=== PATIENT | male | born 1980 | race African-American/Black ===

== ENCOUNTER 2018-08-29 21:33 | Emergency (ER) | payer OTHER, SELFPAY ==
[2018-08-29 21:34] VITALS: BP 133/92; PULSE 72; RESP 16; TEMP 37.3; O2SAT 100; BMI 28.0
--- NOTE | 2018-08-29 21:45 | CT_ITS ---
STUDY: CT BRAIN WITHOUT CONTRAST REASON FOR EXAM: Male, 38 years old. Head injury. RADIATION DOSAGE (If Supplied By Facility): CTDIvol = ( 44.99 ) mGy, DLP = ( 745.49 ) mGycm TECHNIQUE: Transaxial CT imaging of the brain was performed without administration of intravenous contrast material. # of Images: 235 Individualized dose optimization techniques were used for this CT. COMPARISON: None. FINDINGS: Normal soft tissue structures. Normal calvarium. Normal size ventricles and extra-axial spaces for the patient's age. Normal white matter tracts of the cerebral hemispheres. Normal basal ganglia and thalami. Normal brainstem. There is mild cerebellar atrophy. There is no intracranial hemorrhage. There are no findings of an acute ischemic infarction. Normal visualized paranasal sinuses. CT/Brain/Head without Contrast IMPRESSION: No acute intracranial process. Cerebellar atrophy. Electronically Signed: Matt Boogie MD at 23:16 EDT Tel , Service support ,
[2018-08-29 21:51] VITALS: BP 143/91; PULSE 76; RESP 16; O2SAT 98
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
[2018-08-29 23:34] VITALS: BP 145/91; PULSE 78; RESP 17; O2SAT 98
== END 2018-08-29 23:35 | disposition home or self-care (01) ==
PROVIDERS: Emergency Provider Emergency Medicine
DX: S06.0X0A Concussion without loss of consciousness, initial encounter (principal); Y04.2XXA Assault by strike against or bumped into by another person, initial encounter; Y93.9 Activity, unspecified; Y92.119 Unspecified place in children's home and orphanage as the place of occurrence of the external cause; Y99.0 Civilian activity done for income or pay
CPT/HCPCS: 70450; 99283

== ENCOUNTER → 2020-03-22 17:24 | Outpatient (CLI) | payer OTHER, SELFPAY ==
[2018-09-02 15:01] VITALS: BMI 27.9
--- NOTE | 2020-03-22 17:30 | RAD_ITS ---
STUDY: X-RAY - ABDOMEN/PELVIS REASON FOR EXAM: Male, 39 years old. kidney stones, blood in urine TECHNIQUE: Single AP view of the abdomen / pelvis. COMPARISON: None. FINDINGS: Normal visualized lung bases. There is an unremarkable bowel gas pattern. There is no demonstrated free abdominal air. Small calcific density projecting over the expected region of the right kidney measuring 4 mm with similar density structure slightly more cephalad measuring 4.2 mm. This could represent small right-sided renal stones. Otherwise the visualized liver, spleen and kidneys are grossly normal in size and morphology. There are calcified phleboliths in the pelvis. Normal visualized osseous structures. RAD/Abdomen Single View IMPRESSION: Cannot exclude right-sided intrarenal stones, otherwise unremarkable x-ray of the abdomen. Electronically Signed: Beulah Holman MD at 1:05 EDT , Service support ,
== END ==
DX: N20.0 Calculus of kidney (principal)
CPT/HCPCS: 74018

== ENCOUNTER 2020-04-09 09:50 | Emergency (ER) | payer OTHER, SELFPAY ==
[2020-04-09 09:51] VITALS: BP 161/129; PULSE 79; RESP 18; TEMP 36.1; O2SAT 99; BMI 28.7
--- NOTE | 2020-04-09 10:10 | ED.VIS.UPPEX ---
History of Present Illness Informant: Patient Occurred: Weeks - 5 weeks Mechanism/Context: Injury Onset: Weeks - 5 weeks Context: Sudden Onset Timing: Continuous Quality of Pain: Throbbing Location: right arm Current Severity: Moderate Maximum Severity: Severe Worsened by: movement Relieved by: rest Associated Symptoms: Negative for: Parasthesia, Weakness, Loss of Funtion Narrative: 39-year-old [id number] male who denies any significant past medical history presents to the emergency department with right arm pain. Patient works at a [employer]. He states he was lifting up a new door and moving it from one side of his workstation to the other when he felt a pop in his right arm, around his distal bicep area. This was about 5 weeks ago. He has had consistent irritation and pain since that time. He has not had loss of function but he does feel loss of power. No numbness tingling weakness swelling or bruising. He denies trauma. He denies a history of similar. He has been resting icing and using anti-inflammatories but has not had significant improvement. Tetanus Immunization: Unknown Prior similar symptoms: No Recent Illness/Hospitalization: No <Rodrigo Hurtado - Last Filed: 04/09/20 10:35> <Jamel Aguilar - Last Filed: 04/09/20 10:58> Chief Complaint: Upper Extremity Injury Past Medical History Surgical History: appendectomy, - Lives: With Family Smoking Status: Never smoker Alcohol: Occasional Drugs: None <Rodrigo Hurtado - Last Filed: 04/09/20 10:35> <Jamel Aguilar - Last Filed: 04/09/20 10:58> - Allergies and Home Meds Allergies/Adverse Reactions: Allergies No Known Allergies Allergy (Verified 09/02/18 15:02) [facility]] - As soon as possible Review of Systems All systems negative except as indicated General: Denies: Chills, Fever, Malaise Eyes: Denies: Visual changes - bilaterally, Blurred Vision - bilaterally, Diplopia ENT: Denies: Rhinorrhea, Sore throat Cardiovascular: Denies: Chest pain, Palpitations, Heart racing Respiratory: Denies: Dyspnea, Cough, Sputum Gastrointestinal: Denies: Abdominal pain, Nausea, Vomiting, Diarrhea Genitourinary: Denies: Dysuria, Hematuria, Frequency Musculoskeletal: Reports: Extremity Pain. Denies: Myalgias, Arthralgias, Neck pain, Back pain, Swelling Skin: Denies: Rash, Abscess, Abrasions, Wounds Neurological: Denies: Headache, Weakness, Parasthesia, Numbness Psych: Denies: Depression, Anxiety <Rodrigo Hurtado - Last Filed: 04/09/20 10:35> Physical Exam Vital Signs/Narrative: Vital Signs Temp Pulse Resp BP Pulse Ox 04/09/20 09:51 97 F L 79 18 161/129 H 99 Inital Vital Signs reviewed: Yes Left Shoulder: - - Normal inspection of left shoulder. 5 out of 5 strength testing with normal range of motion actively. The patient does have some pain over the left AC joint on palpation. He is neurovascularly intact distally. Right Humerus: - - Normal inspection of the patient's neck, right shoulder, right arm, right elbow, right forearm, right wrist, right hand. No swelling bruising rash skin changes or signs of trauma. He has normal range of motion actively at the shoulder with 5 out of 5 strength testing. He has normal flexion and extension at the elbow with 5 out of 5 strength testing. He has normal pronation and supination with 5 out of 5 strength testing. He has normal flexion and extension at the wrist with 5 out of 5 strength testing. Equal senior policy associate strength bilaterally. Normal radial pulse and normal capillary refill and sensation of all 5 fingers. Most of his tenderness is at his distal bicep but I do not appreciate a obvious defect. No swelling General: Well nourished, Well developed Head: Normocephalic, Atraumatic Eyes: Perrl, EOMI ENT: No Trauma, Moist Mucous Membranes Neck: Nontender, Full ROM. Negative for: Spinal Tenderness, Paraspinal Tenderness Cardiovascular: Regular rate, Regular rhythm, No murmurs Respiratory: No distress, CTA bilaterally, Chest nontender Abdomen: Soft, Nontender, Nondistended, Normal bowel sounds, No masses Back: Nontender Skin: Normal color, No rash, No Trauma Neurological: Alert, Oriented x3, Normal Strength, Normal Sensation, Normal Gait Psychological: Normal affect, Normal Mood <Rodrigo Hurtado - Last Filed: 04/09/20 10:35> Vital Signs/Narrative: Vital Signs Temp Pulse Resp BP Pulse Ox 05/29/20 09:51 97 F L 79 18 161/129 H 99 <Jamel Aguilar - Last Filed: 04/09/20 10:58> Diagnostic/Tx/Re-eval - Medical Decision Making Patient at this time does not have any signs or symptoms of infection, complete tear of his right bicep, or indications for an x-ray of either his right arm or his left shoulder. He likely has a right biceps strain. Discussed continued use of ice and anti-inflammatories. He also likely has a left AC strain in his left shoulder and we also discussed ice and anti-inflammatories. We will give the patient work restrictions and he will follow-up with [facility] as this is a work-related injury. Patient was agreeable with plan all questions were answered. Lifting limited to 10 pounds <Rodrigo Hurtado - Last Filed: 04/09/20 10:35> - Medical Decision Making Seen and evaluated independently and in conjunction with physician medical practice assistant. Agree with notes above unless documented otherwise. Patient states he injured his right upper arm around 5 or 6 weeks ago and has been having issues ever since. Using his biceps especially overhead, is much worse. He feels like he has lack of strength, but every time he feels like that he is limited by pain. He did not have any swelling according to him, and he has no objective asymmetry in his biceps at this time. He has full range of motion of the shoulder and elbow. I suspect he strained the tendon without bart rupture, but he certainly could have something between like a small tear. Therefore we advised following up and limiting weight lifting with the right upper extremity at this time. Also, he states while compensating for this, he suddenly injured his left shoulder and has been having pain there, he has full range of motion with no subacromial tenderness, it is mostly in the left acromioclavicular joint without any swelling or deformity, the tenderness is mild. Supportive care for that, which does not sound work-related. The right upper extremity is, however. <Jamel Aguilar - Last Filed: 04/09/20 10:58> ED Disposition <Rodrigo Hurtado - Last Filed: 04/09/20 10:35> <Jamel Aguilar - Last Filed: 04/09/20 10:58> - Plan for ED Patient: Disposition: Home or Assisted Living Diagnosis: Strain of right biceps, Sprain of left acromioclavicular joint, initial encounter Instructions: ED Sprain AC Joint, ED Strain Muscle Ext Referrals: [facility] [GROUP OF PHYSICIANS] - As soon as possible
== END 2020-04-09 11:14 | disposition home or self-care (01) ==
LOC: ED 10:54
PROVIDERS: Emergency Provider Physician Assistant Medical
DX: S43.52XA Sprain of left acromioclavicular joint, initial encounter (principal); S46.211A Strain of muscle, fascia and tendon of other parts of biceps, right arm, initial encounter; X50.0XXA Overexertion from strenuous movement or load, initial encounter; Y93.89 Activity, other specified; Y92.59 Other trade areas as the place of occurrence of the external cause; Y99.0 Civilian activity done for income or pay
CPT/HCPCS: 99282

== ENCOUNTER 2020-07-01 11:05 | Emergency (ER) | payer OTHER, SELFPAY ==
[2020-07-01 11:07] VITALS: BP 161/96; PULSE 67; RESP 18; TEMP 36.5; O2SAT 98; BMI 29.7
[2020-07-01 11:10] VITALS: BP 161/96; PULSE 72
--- NOTE | 2020-07-01 11:21 | RAD_ITS ---
STUDY: X-RAY CHEST REASON FOR EXAM: Male, 40 years old. PT C/O COUGH, MUSCLE ACHES AND CHILLS, SYMPTOMS STARTING TODAY. REPORTS and quot;SEVERAL PEOPLE AT WORK HAVE TESTED POSITIVE. TECHNIQUE: Single AP portable view of the chest. COMPARISON: None. FINDINGS: The lungs are clear and expanded. There is no demonstrated pleural abnormality. Normal size heart. Normal mediastinum and alannah. Normal visualized pulmonary arteries. Normal visualized aortic arch and descending thoracic aorta. Normal visualized thoracic spine. Normal visualized ribs, clavicles, and shoulders. There is no demonstrated abnormality of the visualized soft tissue structures of the upper abdomen. RAD/Chest 1 View (Portable) IMPRESSION: Normal x-ray examination of the chest. Electronically Signed: Valerie Beaver, at 12:06 EDT Tel , Service support ,
--- NOTE | 2020-07-01 11:44 | ED.DCSUM_ITS ---
- ER Visit Summary Date of Service: 07/01/20 Chief Complaint: Cough, myalgias History of Present Illness: The patient is a 40 M presenting with cough, myalgias. He states the symptoms started 2 days ago. He complains of diffuse myalgias, subjective fever, productive cough. He also has rhinorrhea. He den ies sore throat. Denies chest pain or shortness of breath. Denies abdominal pain or diarrhea. Denies loss of sense of taste or smell. He states 3 people at his work have tested positive for COVID. Physical Examination: Vitals are stable. Patient is afebrile. Alert no acute distress. Pulse ox 98% on room air HEENT exam is unremarkable. Neck is supple. Lungs are clear and equal bilaterally. Heart is regular rate and rhythm. Abdomen is soft nontender nondistended. Extremities are unremarkable. Skin is warm and dry. No focal neurologic deficit. Remainder of exam is unremarkable. Emergency Department Course and Treatment: Chest x-ray shows normal x-ray examination of the chest. Patient is resting comfortably. He is not hypoxic. COVID test was sent. He is advised to continue social distancing. Advised follow-up with primary care physician. Advised to return to ED for worsening complaints. Disposition: Discharge home Impression: Viral syndrome This note was generated with [employer] dictation software. It may contain incorrect words, spelling, and punctuation that were not noted in review of the chart prior to signing ED Disposition - Plan for ED Patient: Referrals: [facility] [Primary Care Provider] -
--- NOTE | 2020-07-01 12:22 | ED.DEP ---
ED Disposition - Plan for ED Patient: Instructions: ED Upper Resp Infec No Abx Tx [facility]errals[facility] [Primary Care Provider] -
== END 2020-07-01 14:51 | disposition home or self-care (01) ==
LOC: ED 12:26
PROVIDERS: Emergency Provider Emergency Medicine
DX: B34.9 Viral infection, unspecified (principal)
CPT/HCPCS: 71045; 87635; 94799; 99282; U0003

== ENCOUNTER → 2021-04-28 17:25 | Outpatient (CLI) | payer OTHER, SELFPAY ==
[2021-04-18 08:15] VITALS: BMI 30.8
--- NOTE | 2021-04-28 17:25 | MRI_ITS ---
STUDY: MRI BRAIN WITH AND WITHOUT CONTRAST REASON FOR EXAM: Male, 40 years old. Cerebellar degeneration TECHNIQUE: Standardized multiplanar fat and water weighted pulse sequences were obtained. IV 17 cc dotarem was administered for the contrast portion of the examination. COMPARISON: None. FINDINGS: Normal size of the ventricles and extra-axial spaces for the patient''s age. Normal white matter tracts of the supratentorial brain. Normal bilateral basal ganglia. Normal thalami. There is no extra-axial fluid accumulation. Normal flow voids within the major intracranial circulation suggesting patency by spin echo criteria. Normal venous enhancement. There is no enhancing intra-axial or extra-axial abnormality. Normal sella turcica, pituitary gland, infundibular stalk, optic chiasm and hypothalamus. Normal tectal plate and pineal gland. Normal midbrain, adal and medulla. Severe nonspecific cerebellar atrophy. Normal basal cisterns. Normal bilateral temporal bones. Normal bilateral internal auditory canals. No demonstrated orbital abnormality, within the constraints of a routine brain study. Normal visualized paranasal sinuses. Normal calvarium and skull base. Normal visualized soft tissue structures. Normal visualized upper cervical spine. MRI/Brain W/WO Contrast IMPRESSION: Nonspecific cerebellar atrophy otherwise normal MRI of the brain with and without contrast Differential diagnosis includes paraneoplastic syndrome, trauma, pharmaceutical induced or chronic ethanolism. Clinical correlation is recommended Electronically Signed: Deacon Carrizales MD at 19:01 EDT , Service support ,
== END ==
PROVIDERS: Referring Provider Psychiatry & Neurology Neurology; Visit Provider Psychiatry & Neurology Neurology
DX: G31.9 Degenerative disease of nervous system, unspecified (principal); G11.9 Hereditary ataxia, unspecified; R41.3 Other amnesia
CPT/HCPCS: 70553; A9575

== ENCOUNTER → 2025-01-26 | Outpatient (CLI) | payer OTHER, SELFPAY ==
[2025-01-26 12:54] LABS: Hematocrit 39.5 % (40-54); Hemoglobin 13.2 g/dL (13.0-16.5); Mean Corp Hgb Conc 33.4 g/dL (32-36); Mean Corpuscular Volume 89.8 fL (80-94); Mean Platelet Vol. 9.2 fl (6.2-12.0); Platelet Count 274 K/mm3 (150-450); RBC Distribution Width CV 13.8 % (11.6-14.6); RBC Distribution Width SD 45.6 fl (35.1-43.9)
[2025-01-26 14:25] LABS: ALB/GLOB Ratio 1.1 RATIO (0.9-2.4); AST(SGOT) 25 U/L (<=37); Alanine Aminotransfer ALT/SGPT 29 U/L (<=46); Albumin, Serum 4.3 g/dL (3.5-5.0); Alkaline Phosphatase 96 U/L (40-129); Anion Gap 8 (5-15); BUN 9 mg/dL (4-19); BUN/Creat Ratio 5.9 RATIO (10-20); Calcium,Total 9.5 mg/dL (7.6-11.0); Carbon Dioxide 27.2 mmol/L (21.0-32.0); Chloride 107 mmol/L (98-108); Creatinine, Serum 1.49 mg/dL (0.70-1.20); EST Glomerular Filtration Rate 58 (>60); Globulin 3.8 g/dL (2.2-4.2); Glucose 69 mg/dL (70-99); Magnesium 2.2 mg/dL (1.5-2.2); Protein, Total 8.1 g/dL (5.9-8.4); Sodium Level 142 mmol/L (133-145); Total Bilirubin 0.41 mg/dL (0.00-1.30); Vitamin B12 305 pg/mL (180-914)
[2025-02-02 10:08] LABS: Folate, RBC (Hct) Test 41.1 % (37.5-51.0); Folates, RBC Test 769 ng/mL (>498); Vitamin B1, Thiamine 75.9 nmol/L (66.5-200.0)
== END | disposition home or self-care (01) ==
PROVIDERS: Referring Provider Psychiatry & Neurology Neurology; Visit Provider Psychiatry & Neurology Neurology
DX: G11.9 Hereditary ataxia, unspecified (principal); R41.3 Other amnesia
CPT/HCPCS: 36415; 80053; 82607; 82747; 83735; 84425; 84443; 85014; 85027